=== PATIENT | female | born 2000 | race Caucasian/White ===

== ENCOUNTER 2025-08-27 17:42 | Emergency (ER) | payer BC, SELFPAY ==
[2025-08-27 17:46] VITALS: BP 107/67
[2025-08-27] MEDS: NSS 1000 IV (19:58)
[2025-08-27 20:04] LABS: Hematocrit 36.8 % (37.0-47.0); Hemoglobin 13.2 g/dL (12.0-16.0); Mean Corp Hgb Conc. 35.9 g/dL (33.0-37.0); Mean Corpuscular Volume 83.8 fL (81.0-99.0); Platelet Count 310 10^3/uL (130-400); Red Cell Dist. Width 12.0 % (11.5-14.5)
[2025-08-27 20:04] LABS: Urine Character Clear (Clear)
--- NOTE | 2025-08-27 20:20 | ED.GENMED ---
History of Present Illness
General
Chief Complaint: Problems
Source: patient
Exam Limitations: none
Time Seen by Provider: 08/27/25 19:24
Nursing documentation reviewed up to this point in time: agreed with
History of Present Illness
History of Present Illness:
Patient G1, P0, presents to ED secondary to persistent dizziness and generalized weakness, after workout [employer] this afternoon. Patient who is approximate 13 weeks via ultrasound 1 week ago, states that she went to [employer] for the first
time since being for session this afternoon. She thinks she may have pressure soft to hard. Patient does state that she did eat and was drinking water prior to session. After returning home, patient reports having had a bowl of cereal
and more water, but her symptoms persisted. Patient spoke with on-call F[employer]ITURE MECH[employer]IC physician who advised patient to drink more fluids but advised her to come to ED if she did not feel well. At that point, patient just wanted to make sure that
everything was okay. Denies abdominal pain. Denies vomiting. Denies fever or chills. Denies chest pain or palpitation. Denies shortness of breath. Denies blurred vision. Denies dizziness. Denies headache. Denies recent illness. Patient has
an appointment with her FURNITURE MECHANIC physician next week.
Review of Systems
Review of Systems
Allergies reviewed?: Yes
All Other Systems: ROS reviewed and negative except as documented in HPI and ROS
Constitutional: Reports no symptoms; Denies fever or chills
Respiratory: Reports no symptoms; Denies cough or trouble breathing
Cardiac: Reports no symptoms; Denies chest pain, palpitations or syncope
ABD/GI: Reports no symptoms; Denies abdominal pain, nausea or vomiting
: Reports no symptoms
Musculoskeletal: Reports no symptoms
Skin: Reports no symptoms
Neurological: Reports weakness; Denies headache
Phy Exam
Physical Exam
Physical Exam:
Physical Exam
General: no apparent distress, not acutely ill. afebrile
Head: nc/at. eomi
Neck: supple. normal range of motion.
Heart: s1/s2 regular rate and rhythm. no murmur
Lungs: no acute respiratory distress. clear bilaterally
Abdomen: normal bowel sounds. not tender.
Neuro: alert and oriented x 3. no focal neurological deficits
Skin: no rash
Psychiatric: well kept. interactive and cooperative
Extremities: no edema. no calf tenderness.
Course
Orders/Labs/Results
Orders:
Orders
08/27/25 19:43
0.9% Sodium Chloride 1000 ml [Nss] 1,000 ml IV BOLUS
08/27/25 19:57
Basic Metabolic Panel Urgent
Complete Blood Count/No Diff Urgent
Magnesium Urgent
08/27/25 19:59
Urinalysis Reflex To Culture Urgent
Date Specimen was Collected: 08/27/25
Time Specimen was Collected: 19:58
Abnormal Lab Results
08/27/25
19:57
Hct 36.8 L %
(37.0-47.0)
Sodium 132 L mmol/L
(135-145)
Carbon Dioxide 21 L mmol/L
(22-30)
Creatinine 0.5 L mg/dL
(0.6-1.0)
08/27/25 19:57
08/27/25 19:57
Vital Signs
Initial and Last Documented VS:
Initial Vital Signs
Temp Pulse Resp BP Pulse Ox
98.4 F 92 18 107/67 97
08/27/25 17:46 08/27/25 17:46 08/27/25 17:46 08/27/25 17:46 08/27/25 17:46
Last Documented Vital Signs
Temp Pulse Resp BP Pulse Ox
98.4 F 92 18 107/67 97
08/27/25 17:46 08/27/25 17:46 08/27/25 17:46 08/27/25 17:46 08/27/25 20:24
Information
Weeks gestation: Weeks: (13)
Location: Location: ([facility])
MDM/Problems Addressed
MDM/Problems Addressed:
History and exam consistent with likely mild dehydration with overexertion. Patient otherwise is afebrile, hemodynamically stable, and appears comfortable. Screening blood work within normal limits. Patient given IV fluids with improvement in
symptoms. Patient will be discharged home in stable condition, with recommendation to follow-up with her [employer] physician as scheduled for reevaluation. Until then, patient will be careful in terms of exercising, along with proper nutrition and
hydration.
*Pulse Oximetry
SaO2: 97
Oxygen Mode of Delivery: Room air
Patient hypoxic: no
*Critical Care Note
Total Time (30-74mins, 75-104mins- exclusive of procedures): Not Applicable
ED Attending Note
-
Portions of this chart may have been created with voice recognition software.� Occasional wrong word or��sound alike� substitutions may have occurred due to the inherent limitations of voice recognition software.
Discharge Plan
Departure
Patient Disposition: Home (Routine Discharge)
Date of Disposition: 08/27/25
Time of Disposition: 21:31
Patient with high blood pressure during this ER visit?: No
Discharge Problem:
Weakness
Instructions: Weakness - ED (DC)
Referrals:
NONE,* [Family Provider, Internal Medicine]
Stand Alone Forms: Return to Work
Activity Restrictions/Additional Instructions:
As discussed, please follow-up with your F[employer]ITURE [employer]CH[employer] physician as scheduled next week for reevaluation.
Interventions
Interventions:
*Risk Screen - Suicide Last Done: 08/27/25 17:46
*General Assessment Last Done: 08/27/25 17:46
*Neglect/Abuse Screening Last Done: 08/27/25 19:36
*ED- Fall Risk Assessment Last Done: 08/27/25 20:02
*Nursing Disposition Last Done: 08/27/25 21:56
ED-Female Genitourinary Assessment Last Done: 08/27/25 20:02
Discharge Date and Time
Discharge Date/Time: 08/27/25 21:56
Print Language: ARMENIAN
[2025-08-27 20:34] LABS: Blood Urea Nitrogen 8 mg/dl (7-17); Calcium 9.7 mg/dl (8.4-10.2); Carbon Dioxide 21 mmol/L (22-30); Chloride 103 mmol/L (98-107); Glucose 89 mg/dl (70-99); Magnesium 2.0 mg/dl (1.6-2.3); Potassium 4.3 mmol/L (3.5-5.1); Sodium 132 mmol/L (135-145); eGFR > 60.00
== END 2025-08-27 21:56 | disposition home or self-care (01) ==
LOC: EMR 17:42
PROVIDERS: EMERGENCY PHYSICIAN Emergency Medicine
DX: O99.891 Other specified diseases and conditions complicating pregnancy (principal); R53.1 Weakness; Z3A.13 13 weeks gestation of pregnancy
CPT/HCPCS: 99284; 96360; 80048; 81003; 83735; 85027

== ENCOUNTER 2025-11-12 12:13 | Emergency (ER) | payer BC, SELFPAY ==
[2025-11-12 12:23] VITALS: BP 107/69
[2025-11-12 12:54] LABS: Hematocrit 35.2 % (37.0-47.0); Hemoglobin 12.4 g/dL (12.0-16.0); Mean Corp Hgb Conc. 35.2 g/dL (33.0-37.0); Mean Corpuscular Volume 86.7 fL (81.0-99.0); Nucleated Red Blood Cells % 0 %; Platelet Count 266 10^3/uL (130-400); Red Cell Dist. Width 12.3 % (11.5-14.5)
[2025-11-12 13:04] LABS: COVID-19 Antigen Negative (Negative)
[2025-11-12 13:08] LABS: ALT (SGPT) 14 U/L (0-35); AST (SGOT) 16 U/L (14-36); Albumin 3.7 g/dl (3.5-5.0); Alkaline Phosphatase 56 U/L (38-126); Blood Urea Nitrogen 8 mg/dl (7-17); Calcium 8.9 mg/dl (8.4-10.2); Carbon Dioxide 21 mmol/L (22-30); Chloride 104 mmol/L (98-107); Glucose 133 mg/dl (70-99); Potassium 3.8 mmol/L (3.5-5.1); Sodium 132 mmol/L (135-145); Total Protein 6.3 g/dl (6.3-8.2); eGFR > 60.00
--- NOTE | 2025-11-12 13:19 | ED.GENMED ---
History of Present Illness
General
Chief Complaint: Fatigue
Source: patient
Time Seen by Provider: 11/12/25 13:04
History of Present Illness
History of Present Illness:
25-year-old female presenting to the ER for evaluation of mild URI-like symptoms since noting mild sore throat and nasal congestion. Patient is 20 weeks . She states that she works a job where she is around a lot of people and
just wanted to be sure she did not have anything serious. As far as her goes she states no complications thus far. She has an appointment with her [employer] OPERATOR this coming week. She is due for her anatomy assessment during that
visit. She denies any vaginal bleeding, discharge, urinary symptoms or any other concerns.
Past History
Past History
ED Past Medical History: Psychiatric
ED Past Surgical History: None
Social History
Tobacco: Non-smoker
Alcohol: None
Drug: None
Personal: Single
Living: with family
Employment: Employed
Review of Systems
Review of Systems
All Other Systems: ROS reviewed and negative except as documented in HPI and ROS
Phy Exam
Physical Exam
Physical Exam:
GENERAL: Alert , in no apparent distress
HEAD: Normocephalic atraumatic
EYE: conjunctiva clear
NECK: Supple, no significant adenopathy.
ENT: o/p clr, mmm. TMs clear bilateral
CARDIAC: Regular rate and rhythm
LUNGS: Clear breath sounds bilaterally, no acute respiratory distress, no wheezes/rales/rhonchi
NEUROLOGICAL: Alert and oriented
SKIN: Warm and dry, skin intact.
MUSCULOSKELETAL: well perfused.
PSYCH: Normal and appropriate interaction.
Scores
Heart Failure Risk
Heart Failure Risk Score: Not Applicable
Heart Score for Chest Pain Patients
STEMI patient?: Not applicable
Withdrawal Assessment of Alcohol
Withdrawal Assessment Completed?: Not applicable
Course
Orders/Labs/Results
Orders:
Orders
11/12/25 12:42
COVID-19 Antigen Urgent
Source: Nasal Swab
Complete Blood Count/With Diff Urgent
Comprehensive Metabolic Panel Urgent
Influenza A+B Rapid Molecular Urgent
CONNOR Source: Nasal Swab
Specimen Description:
11/12/25 13:30
Heart Tones ONCE
Abnormal Lab Results
11/12/25
12:42
RBC 4.06 L 10^6/uL
(4.20-5.40)
Hct 35.2 L %
(37.0-47.0)
Lymphocytes % 20.0 L %
(20.5-51.1)
Sodium 132 L mmol/L
(135-145)
Carbon Dioxide 21 L mmol/L
(22-30)
Creatinine 0.5 L mg/dL
(0.6-1.0)
Glucose 133 H mg/dl
(70-99)
Total Bilirubin < 0.1 L mg/dl
(0.2-1.3)
11/12/25 12:42
11/12/25 12:42
Vital Signs
Initial and Last Documented VS:
Initial Vital Signs
Temp Pulse Resp BP Pulse Ox
98.3 F 98 20 107/69 97
11/12/25 12:23 11/12/25 12:23 11/12/25 12:23 11/12/25 12:23 11/12/25 12:23
Last Documented Vital Signs
Temp Pulse Resp BP Pulse Ox
98.3 F 98 20 107/69 97
11/12/25 12:23 11/12/25 12:23 11/12/25 12:23 11/12/25 12:23 11/12/25 13:22
MDM/Problems Addressed
Differential Diagnosis Includes:
COVID
Flu
Viral syndrome
Pneumonia
No concern for related complication
MDM/Problems Addressed:
25-year-old female presenting the ER for mild URI-like symptoms. Patient is overall very well-appearing. Labs COVID and flu testing had been ordered prior to my examination and are all reassuring. I did advise the patient that I suspect her
symptoms are likely related to a viral URI. Can take Tylenol, Claritin or nasal spray for symptomatic relief as needed. Otherwise stable for discharge, aware of return precautions.
We did measure patient's heart tones measuring at 160 bpm.
*Pulse Oximetry
SaO2: 97
Oxygen Mode of Delivery: Room air
Patient hypoxic: no
*Critical Care Note
Total Time (30-74mins, 75-104mins- exclusive of procedures): Not Applicable
ED Attending Note
-
Portions of this chart may have been created with voice recognition software.� Occasional wrong word or��sound alike� substitutions may have occurred due to the inherent limitations of voice recognition software.
Discharge Plan
Departure
Patient Disposition: Home (Routine Discharge)
Date of Disposition: 11/12/25
Time of Disposition: 13:19
Patient with high blood pressure during this ER visit?: No
Discharge Problem:
Acute viral syndrome
Instructions: Cough, runny nose, and colds
Stand Alone Forms: Return to Work
Interventions
Interventions:
*General Assessment Last Done: 11/12/25 12:23
*Neglect/Abuse Screening Last Done: 11/12/25 12:23
*Risk Screen - Suicide (C-SSRS) Last Done: 11/12/25 12:23
*Nursing Disposition Last Done: 11/12/25 13:41
Discharge Date and Time
Discharge Date/Time: 11/12/25 13:41
Print Language: SPANISH
== END 2025-11-12 13:41 | disposition home or self-care (01) ==
LOC: EMR 12:13
PROVIDERS: Emergency Medicine; EMERGENCY PHYSICIAN Emergency Medicine
DX: O98.512 Other viral diseases complicating pregnancy, second trimester (principal); B34.9 Viral infection, unspecified; Z3A.20 20 weeks gestation of pregnancy
CPT/HCPCS: 99283; 80053; 85025; 87502; 87811